=== PATIENT | male | born 1970 | race Hispanic/Latino ===

== ENCOUNTER 2017-11-20 23:55 | Emergency (ER) | payer SELFPAY ==
[2017-11-21] MEDS ORDERED: LABETALOL 20 MG/4ML SYRINGE IV ONE (00:41)
[2017-11-21 00:55] LABS: Absolute Lymphocytes (CBC) 2.4 K/uL (0.7-4.9); Absolute Monocytes 0.8 K/uL (0.1-1.3); Absolute Neutrophil 7.2 K/uL (1.8-8.0); Basophils % 0.8 % (0-1.3); Eosinophils % 0.3 % (0-4.4); Hematocrit 47.8 % (39.6-49.0); Lymphocytes % 22.8 % (15.3-44.8); MCH 30.8 pg (27.0-35.0); MCV 89.3 fL (80-100); Monocytes % 7.7 % (3.3-12.3); RBC Red Blood Cell Count 5.36 M/uL (4.33-5.43)
[2017-11-21 01:00] LABS: Protime INR 0.97
[2017-11-21 01:24] LABS: Bicarbonate 23 mEq/L (21-31); Glucose Level 118 mg/dL (65-120); Potassium 3.3 mEq/L (3.6-5.0); Sodium Level 135 mEq/L (135-145)
[2017-11-21 01:25] LABS: BUN Blood Urea Nitrogen 13 mg/dL (6-20); Glomerular Filtration Rate > 90 mL/min (=/>90)
[2017-11-21] MEDS ORDERED: ONDANSETRON 4 MG/2 ML VIAL ONE (01:31)
--- NOTE | 2017-11-21 02:27 | ER ---
Nurse's Notes [facility] Name: Narciso Her Age: 47 yrs Sex: Male : 1970 Arrival Date: 11/21/2017 Time: 00:01 Bed 7 Private MD: Diagnosis: Third [oculomotor] nerve palsy, right eye Presentation: 11/21 00:08 Presenting complaint: Patient states: Headache x2 days causing pain behind right eye lp1 and blurred vision to right eye; Pain to base of skull, dizziness, nausea. Transition of care: patient was not received from another setting of care. Onset of symptoms was November 19, 2017. Care prior to arrival: None. 00:08 Method Of Arrival: Ambulatory lp1 00:08 Acuity: NATALI 3 lp1 Triage Assessment: 00:11 Headache History: The patient has had previous headaches and this one is similar to lp1 previous episodes, and this one is more severe than previous episodes. General: Appears in no apparent distress. Behavior is appropriate for age. Neuro: Level of Consciousness is awake, alert, obeys commands, Gait is steady, Speech is normal, Facial symmetry appears normal, Pupils are PERRLA. 00:19 Pain: Pain began 2-3 days ago. Also complains of no other associated symptoms. ao Historical: - Allergies: 00:11 No Known Allergies; lp1 - Home Meds: 00:11 Prevacid Oral [Active]; lp1 - PMHx: 00:11 Migraines; gastritis; lp1 - PSHx: 00:11 Knee surgery; lp1 - Immunization history:: Adult Immunizations up to date. - Social history:: Smoking status: Patient/guardian denies using tobacco. Screenin:11 Abuse screen: Denies threats or abuse. Denies injuries from another. Nutritional lp1 screening: No deficits noted. Tuberculosis screening: No symptoms or risk factors identified. Fall Risk None identified. 01:04 The patient has not been NPO before screening. The patient is alert, able to follow ao commands. The patient does not exhibit slurred or garbled speech The patient is not exhibiting difficulty speaking. The patient does not exhibit difficulty understanding words. The patient is able to swallow own secretions with no drooling or need for suction. Patient tolerated one teaspoon of water. No drooling, immediate coughing, gurgling, or clearing of the throat was noted. The patient tolerated 90mL of water. No drooling, immediate coughing, gurgling, or clearing of the throat was noted. The patient passed the bedside swallow screening. Oral medications may be given as ordered. Contact Physician for further diet orders. Provider notified of bedside swallow screening results: Jarad Lezama MD. Assessment: 00:11 General: Appears in no apparent distress. comfortable, Behavior is calm, cooperative, ao appropriate for age. Pain: Complains of pain in right eye Pain currently is 8 out of 10 on a pain scale. Neuro: Level of Consciousness is awake, alert, obeys commands, Oriented to person, place, time, situation, Appropriate for age Moves all extremities. Speech is normal, Appears normal, C/O Right side eye weakness. Neuro:. Cardiovascular: Heart tones S1 S2 Capillary refill < 3 seconds Patient's skin is warm and dry. Respiratory: Airway is patent Respiratory effort is even, unlabored, Respiratory pattern is regular, symmetrical, Breath sounds are clear bilaterally. GI: Abdomen is obese, Bowel sounds present X 4 quads. : No signs and/or symptoms were reported regarding the genitourinary system. EENT: Eyes Right eye close. Patient C/O double vision . Reports blurred vision in iris of right eye pain in right eye. Derm: Skin is intact, Skin is pink, warm \T\ dry. Skin temperature is warm. Musculoskeletal: No signs and/or symptoms reported regarding the musculoskeletal system. Range of motion: intact in all extremities. 01:08 Reassessment: Patient appears in no apparent distress at this time. Patient and/or ao family updated on plan of care and expected duration. Pain level reassessed. Patient is alert, oriented x 3, equal unlabored respirations, skin warm/dry/pink. waiting on CT report. 02:05 Reassessment: Patient appears in no apparent distress at this time. Patient is alert, ao oriented x 3, equal unlabored respirations, skin warm/dry/pink. Patient to be transferred. Patient has no questions at this time. 03:03 Reassessment: Patient appears in no apparent distress at this time. Patient and/or ao family updated on plan of care and expected duration. Pain level reassessed. Patient is alert, oriented x 3, equal unlabored respirations, skin warm/dry/pink. Phone report called MARICRUZ Pacheco. 03:11 Reassessment: Patient left ER. Patient Stable at this time. VS stable. Patient had no ao questions. Hand off care to EMS. Vital Signs: 00:10 BP 163 / 109; Pulse 77; Resp 18; Temp 97.8(O); Pulse Ox 99% on R/A; Weight 133.81 kg; lp1 Height 5 ft. 8 in. (172.72 cm); Pain 7/10; 01:08 BP 119 / 76; Pulse 79; Resp 18; Pulse Ox 98% on R/A; Pain 0/10; ao 02:05 BP 121 / 88; Pulse 78; Resp 14; Pulse Ox 97% on R/A; Pain 0/10; ao 03:11 BP 125 / 77; Pulse 74; Resp 19; Pulse Ox 98% on R/A; Pain 0/10; ao 00:10 Body Mass Index 44.85 (133.81 kg, 172.72 cm) lp1 NIH Stroke Scale Scores: 00:17 NIHSS Score: 3 ao 01:29 NIHSS Score: 1 ED Course: 00:01 Patient arrived in ED. do 00:03 Jarad Lezama MD is Attending Physician. gs 00:05 Matt Alejandra RN is Primary Nurse. ao 00:10 Triage completed. lp1 00:10 Arm band placed on left wrist. lp1 00:19 Patient has correct armband on for positive identification. Pulse ox on. NIBP on. ao 00:35 X-ray completed. Portable x-ray completed in exam room. Patient tolerated procedure kw well. 00:45 Inserted saline lock: 20 gauge in right forearm, using aseptic technique. Blood bp collected. 01:27 Protime (+inr) Sent. ao 01:27 CBC with Diff Sent. ao 01:27 Basic Metabolic Panel Sent. ao 01:28 Stroke CXR 1 View Sent. ao 01:28 CT Stroke Brain w/o Contrast Sent. ao 02:34 Urine Microscopic Only Sent. ao 03:08 No provider procedures requiring assistance completed. Patient transferred, IV remains ao in place. Administered Medications: 00:53 Drug: Labetalol 10 mg Route: IVP; Infused Over: 2 mins; Site: right forearm; ao 01:28 Follow up: Response: No adverse reaction; Blood pressure is lowered ao 01:10 Drug: Zofran 4 mg Route: IVP; Site: right forearm; ao 02:34 Follow up: Response: No adverse reaction ao Point of Care Testing: Blood Glucose: 00:45 Blood Glucose: 102 mg/dL; bp Ranges: Outcome: 02:26 ER care complete, transfer ordered by MD. gan 03:08 Transferred to [facility], Transfer form completed. X-rays sent w/ patient. ao 03:08 Condition: stable 03:08 Instructed on the need for transfer. 03:17 Patient left the ED. ao NIH Stroke Scale - NIH Stroke Score Date: 11/21/2017 Time: 00:17 Total Score = 3 1a. Level of Consciousness (LOC) - 0(Alert) 1b. Level of Consciousness (LOC) (Year \T\ Age) - 0(Both) 1c. LOC Commands (Open \T\ Closes Eyes/Electrical Prospecting Observer) - 1(One) 2. Best Gaze (Lateral Gaze Paresis) - 1(Partial gaze palsy) 3. Visual Field Loss - 1(Partial hemianopia) 4. Facial Palsy - 0(Normal) 5a. Left Arm: Motor (10-second hold) - 0(No drift) 5b. Right Arm: Motor (10-second hold) - 0(No drift) 6a. Left Leg: Motor (5-second hold - always test supine) - 0(No drift) 6b. Right Leg: Motor (5-second hold - always test supine) - 0(No drift) 7. Limb Ataxia (finger/nose \T\ heel/strong - test with eyes open) - 0(Absent) 8. Sensory Loss (pinprick arms/legs/face) - 0(Normal) 9. Best Language: Aphasia (description/naming/reading) - 0(No aphasia) 10. Dysarthria (speech clarity - read or repeat words) - 0(Normal) 11. Extinction and Inattention (visual/tactile/auditory/spatial/personal) - 0(No abnormality) Initials: ao NIH Stroke Scale - NIH Stroke Score Date: 11/21/2017 Time: 01:29 Total Score = 1 1a. Level of Consciousness (LOC) - 0(Alert) 1b. Level of Consciousness (LOC) (Year \T\ Age) - 0(Both) 1c. LOC Commands (Open \T\ Closes Eyes/Electrical Prospecting Observer) - 0(Both) 2. Best Gaze (Lateral Gaze Paresis) - 1(Partial gaze palsy) 3. Visual Field Loss - 0(No visual loss) 4. Facial Palsy - 0(Normal) 5a. Left Arm: Motor (10-second hold) - 0(No drift) 5b. Right Arm: Motor (10-second hold) - 0(No drift) 6a. Left Leg: Motor (5-second hold - always test supine) - 0(No drift) 6b. Right Leg: Motor (5-second hold - always test supine) - 0(No drift) 7. Limb Ataxia (finger/nose \T\ heel/strong - test with eyes open) - 0(Absent) 8. Sensory Loss (pinprick arms/legs/face) - 0(Normal) 9. Best Language: Aphasia (description/naming/reading) - 0(No aphasia) 10. Dysarthria (speech clarity - read or repeat words) - 0(Normal) 11. Extinction and Inattention (visual/tactile/auditory/spatial/personal) - 0(No abnormality) Initials: Signatures: Rizwana Morgan Laura, RN RN lp1 Matt Alejandra RN RN ao Natalie Lara Gregory, MD MD gs Peltier, Brian RN RN bp
--- NOTE | 2017-11-21 02:27 | EDPHYS ---
Physician Documentation [facility] Name: Narciso Her Age: 47 yrs Sex: Male : 1970 Arrival Date: 11/21/2017 Time: 00:01 Bed 7 Private MD: ED Physician Jarad Lezama HPI: 11/21 01:29 This 47 yrs old Male presents to ER via Ambulatory with complaints of gs Headache, Nausea, Feels like R side of face is paralyzed. 01:29 The patient presents to the emergency department with a vision problem, blurred vision. gs Onset: The symptoms/episode began/occurred acutely, 12 hour(s) ago. Context: occurred at home. Associated signs and symptoms: Pertinent positives: headache, gradual onset. Severity of symptoms: At their worst the symptoms were moderate in the emergency department the symptoms are unchanged. Patient's baseline: Neuro: alert and fully oriented, Motor: no deficits, Ambulation: walks without assistance, Speech: normal. The patient has not experienced similar symptoms in the past. Historical: - Allergies: 00:11 No Known Allergies; lp1 - Home Meds: 00:11 Prevacid Oral [Active]; lp1 - PMHx: 00:11 Migraines; gastritis; lp1 - PSHx: 00:11 Knee surgery; lp1 - Immunization history:: Adult Immunizations up to date. - Social history:: Smoking status: Patient/guardian denies using tobacco. ROS: 01:29 All other systems are negative. gs Exam: 01:29 Head/Face: Normocephalic, atraumatic. ENT: Nares patent. No nasal discharge, no gs septal abnormalities noted. Tympanic membranes are normal and external auditory canals are clear. Oropharynx with no redness, swelling, or masses, exudates, or evidence of obstruction, uvula midline. Mucous membranes moist. Neck: Trachea midline, no thyromegaly or masses palpated, and no cervical lymphadenopathy. Supple, full range of motion without nuchal rigidity, or vertebral point tenderness. No Meningismus. Chest/axilla: Normal chest wall appearance and motion. Nontender with no deformity. No lesions are appreciated. Cardiovascular: Regular rate and rhythm with a normal S1 and S2. No gallops, murmurs, or rubs. Normal PMI, no JVD. No pulse deficits. Respiratory: Lungs have equal breath sounds bilaterally, clear to auscultation and percussion. No rales, rhonchi or wheezes noted. No increased work of breathing, no retractions or nasal flaring. Abdomen/GI: Soft, non-tender, with normal bowel sounds. No distension or tympany. No guarding or rebound. No evidence of tenderness throughout. Back: No spinal tenderness. No costovertebral tenderness. Full range of motion. Skin: Warm, dry with normal turgor. Normal color with no rashes, no lesions, and no evidence of cellulitis. MS/ Extremity: Pulses equal, no cyanosis. Neurovascular intact. Full, normal range of motion. 01:29 Constitutional: The patient appears alert, awake. 01:29 Eyes: Periorbital structures: ptosis r upper lid, Pupils: no acute changes, Extraocular movements: gaze deviation towards the superior on right eye and medial on right eye, Corneas: are normal. 01:29 Neuro: Orientation: is normal, Mentation: is normal, Memory: is normal, Cranial nerves: normal except r 3rd, Cerebellar function: is grossly normal, Motor: moves all fours, strength is 5/5 in all extremities, Sensation: no obvious gross deficits. 01:41 ECG was reviewed by the Attending Physician. Vital Signs: 00:10 BP 163 / 109; Pulse 77; Resp 18; Temp 97.8(O); Pulse Ox 99% on R/A; Weight 133.81 kg; lp1 Height 5 ft. 8 in. (172.72 cm); Pain 7/10; 01:08 BP 119 / 76; Pulse 79; Resp 18; Pulse Ox 98% on R/A; Pain 0/10; ao 02:05 BP 121 / 88; Pulse 78; Resp 14; Pulse Ox 97% on R/A; Pain 0/10; ao 03:11 BP 125 / 77; Pulse 74; Resp 19; Pulse Ox 98% on R/A; Pain 0/10; ao 00:10 Body Mass Index 44.85 (133.81 kg, 172.72 cm) lp1 NIH Stroke Scale Scores: 00:17 NIHSS Score: 3 ao 01:29 NIHSS Score: 1 gs MDM: 00:07 Patient medically screened. 01:29 Data reviewed: vital signs, nurses notes. ED course: ddx- ich, brain stem cva, gs aneurysm, sah. 11/21 00:18 Order name: Basic Metabolic Panel 11/21 00:18 Order name: CBC with Diff 11/21 00:18 Order name: Protime (+inr) 11/21 00:18 Order name: Urine Microscopic Only 11/21 01:10 Order name: CBC with Automated Diff EDMS 11/21 01:11 Order name: Protime (+INR) EDMS 11/21 00:18 Order name: CT Stroke Brain w/o Contrast 11/21 00:18 Order name: Stroke CXR 1 View 11/21 01:25 Order name: Basic Metabolic Panel EDMS 11/21 02:48 Order name: Urine Dipstick--Ancillary (enter results) oh 11/21 03:01 Order name: Urine Microscopic Only EDKY 11/21 03:08 Order name: Urine Dipstick-Ancillary EDKY 11/21 00:18 Order name: EKG; Complete Time: 00:19 11/21 00:18 Order name: Accucheck; Complete Time: 00:53 11/21 00:18 Order name: Cardiac monitoring; Complete Time: 00:54 11/21 00:18 Order name: EKG - Nurse/Tech; Complete Time: 00:54 11/21 00:18 Order name: IV Saline Lock; Complete Time: 00:54 11/21 00:18 Order name: Labs collected and sent; Complete Time: 00:54 11/21 00:18 Order name: NPO; Complete Time: 00:25 11/21 00:18 Order name: O2 Per Protocol; Complete Time: 00:25 11/21 00:18 Order name: O2 Sat Monitoring; Complete Time: 00:26 11/21 00:18 Order name: Stroke Swallow Screen; Complete Time: 00:54 11/21 00:18 Order name: Urine Dipstick-Ancillary (obtain specimen); Complete Time: 02:34 gs EC:41 Rate is 77 beats/min. Rhythm is regular. [place] interval is normal. QRS interval is normal. gs QT interval is normal. T waves are Normal. No ST changes noted. Clinical impression: Normal ECG. Interpreted by me. Administered Medications: 00:53 Drug: Labetalol 10 mg Route: IVP; Infused Over: 2 mins; Site: right forearm; ao 01:28 Follow up: Response: No adverse reaction; Blood pressure is lowered ao 01:10 Drug: Zofran 4 mg Route: IVP; Site: right forearm; ao 02:34 Follow up: Response: No adverse reaction ao Point of Care Testing: Blood Glucose: 00:45 Blood Glucose: 102 mg/dL; bp Ranges: Critical Glucose Levels:Adult <50 mg/dl or >400 mg/dl <40 mg/dl or >180 mg/dl Disposition: 11/21/17 02:26 Transfer ordered to Other Acute Care Facility. Diagnosis is Third [oculomotor] nerve palsy, right eye. - Reason for transfer: Higher level of care. - Accepting physician is randy. - Condition is Stable. - Problem is new. - Symptoms are unchanged. NIH Stroke Scale - NIH Stroke Score Date: 11/21/2017 Time: 00:17 Total Score = 3 1a. Level of Consciousness (LOC) - 0(Alert) 1b. Level of Consciousness (LOC) (Year \T\ Age) - 0(Both) 1c. LOC Commands (Open \T\ Closes Eyes/Foundry Manager) - 1(One) 2. Best Gaze (Lateral Gaze Paresis) - 1(Partial gaze palsy) 3. Visual Field Loss - 1(Partial hemianopia) 4. Facial Palsy - 0(Normal) 5a. Left Arm: Motor (10-second hold) - 0(No drift) 5b. Right Arm: Motor (10-second hold) - 0(No drift) 6a. Left Leg: Motor (5-second hold - always test supine) - 0(No drift) 6b. Right Leg: Motor (5-second hold - always test supine) - 0(No drift) 7. Limb Ataxia (finger/nose \T\ heel/strong - test with eyes open) - 0(Absent) 8. Sensory Loss (pinprick arms/legs/face) - 0(Normal) 9. Best Language: Aphasia (description/naming/reading) - 0(No aphasia) 10. Dysarthria (speech clarity - read or repeat words) - 0(Normal) 11. Extinction and Inattention (visual/tactile/auditory/spatial/personal) - 0(No abnormality) Initials: ao NIH Stroke Scale - NIH Stroke Score Date: 11/21/2017 Time: Total Score = 1 1a. Level of Consciousness (LOC) - 0(Alert) 1b. Level of Consciousness (LOC) (Year \T\ Age) - 0(Both) 1c. LOC Commands (Open \T\ Closes Eyes/Foundry Manager) - 0(Both) 2. Best Gaze (Lateral Gaze Paresis) - 1(Partial gaze palsy) 3. Visual Field Loss - 0(No visual loss) 4. Facial Palsy - 0(Normal) 5a. Left Arm: Motor (10-second hold) - 0(No drift) 5b. Right Arm: Motor (10-second hold) - 0(No drift) 6a. Left Leg: Motor (5-second hold - always test supine) - 0(No drift) 6b. Right Leg: Motor (5-second hold - always test supine) - 0(No drift) 7. Limb Ataxia (finger/nose \T\ heel/strong - test with eyes open) - 0(Absent) 8. Sensory Loss (pinprick arms/legs/face) - 0(Normal) 9. Best Language: Aphasia (description/naming/reading) - 0(No aphasia) 10. Dysarthria (speech clarity - read or repeat words) - 0(Normal) 11. Extinction and Inattention (visual/tactile/auditory/spatial/personal) - 0(No abnormality) Initials: Signatures: Dispatcher [employer] Paty Martinez RN RN lp1 Matt Alejandra RN RN ao Jarad Lezama MD MD
[2017-11-21 03:01] LABS: Urine Bacteria <20 /HPF (NONE SEEN); Urine Culture Reflex Order NOT NEEDED; Urine RBC NONE SEEN /HPF (NONE SEEN)
[2017-11-21 03:07] LABS: Urine Blood NEGATIVE (NEG); Urine Glucose NEGATIVE (NEG); Urine Protein NEGATIVE (NEG); Urine Specific Gravity 1.015 (1.005-1.030)
--- NOTE | 2017-11-21 06:50 | RAD REPORT ---
EXAM DESCRIPTION: RAD - Chest Single View - 11/21/2017 12:36 am CLINICAL HISTORY: Shortness of breath, third nerve palsy COMPARISON: None. TECHNIQUE: AP portable chest image was obtained 0020 hours . FINDINGS: Lungs are clear. Heart and vasculature are normal. No measurable pleural effusion and no p neumothorax. No gross bony abnormality seen. No acute aortic findings suspected. IMPRESSION: No acute cardiopulmonary process.
--- NOTE | 2017-11-21 06:51 | RAD REPORT ---
EXAM DESCRIPTION: CT - Ct Stroke Brain Wo Cont - 11/21/2017 6:33 am CLINICAL HISTORY: Possible stroke, headache A preliminary written report was provided at the time of the study, and the report was reviewed prio r to final dictation. CLINICAL HISTORY: None. TECHNIQUE: Axial 5 millimeter thick images of the head were obtained without IV contrast. All CT scans are performed using dose optimization technique as appropriate and may include automated exposure control or mA/KV adjustment according to patient size. FINDINGS: No intracranial hemorrhage, mass, or cerebral edema. No acute infarction identifiable. No extra-axial fluid collections. Cao matter-white matter differentiation is preserved. Visualized portions of the mastoid air cells, paranasal sinuses, and orbits are unremarkable. IMPRESSION: No CT evidence of acute intracranial process.
--- NOTE | 2017-11-21 07:33 | EKG ---
Test Date: 2017-11-21 Test Time: 00:43:31 Online Content Editor: KEYLA MEASUREMENT RESULTS: Intervals: Rate: 77 [place]: 132 QRSD: 84 QT: 372 QTc: 420 [place]: P: 28 [place]: 132 QRS: 12 T: 57 INTERPRETIVE STATEMENTS: Normal sinus rhythm Normal ECG No previous ECG available for comparison Electronically Signed On 11-21-17 07:31:57 CDT by Sukhwinder Bradford
== END 2017-11-21 03:17 ==
LOC: ER 23:55
DX: H49.01 Third [oculomotor] nerve palsy, right eye (principal); K29.70 Gastritis, unspecified, without bleeding
CPT/HCPCS: 36415; 70450; 71045; 80048; 81003; 81015; 82962; 85025; 85610; 93005; 96374; 96375; 99285; J2405

== ENCOUNTER 2021-03-29 18:04 | Inpatient (IN) | payer SELFPAY ==
--- NOTE | 2021-03-29 22:06 | RAD REPORT ---
EXAM DESCRIPTION: CT - Head Brain Wo Cont - 03/29/2021 9:36 pm CLINICAL HISTORY: PAIN, headache COMPARISON: Ct Stroke Brain Wo Cont dated 11/21/2017 TECHNIQUE: Axial 5 mm thick images of the head were obtained without IV contrast. All CT scans are performed using dose optimization technique as appropriate and may include automated exposure control or mA/KV adjustment according to patient size. FINDINGS: No intracranial hemorrhage, mass, edema or shift of mid-line structures. No acute infarcti on changes seen. No abnormal extra-axial fluid collections. Ventricles are normal. Mastoid air cells and visualized portions of the paranasal sinuses are clear. No acute bony findings. No significant change from comparison. IMPRESSION: Negative non-contrast CT head examination.
[2021-03-29] MEDS ORDERED: NA CHLORIDE 0.9% 500 ML ONE (22:34)
[2021-03-29] MEDS ORDERED: DIPHENHYDRAMINE 50 MG/ML VIAL ONE (22:34)
[2021-03-29] MEDS ORDERED: METOCLOPRAMIDE 10 MG/2mL INJ ONE (22:34)
[2021-03-29 22:37] LABS: Protime INR 1.09
[2021-03-29 22:38] LABS: Absolute Lymphocytes (CBC) 2.9 K/uL (0.7-4.9); Basophils % 1.2 % (0-1.3); Hematocrit 47.3 % (39.6-49.0); Lymphocytes % 28.5 % (15.3-44.8); MPV 8.1 fL (7.6-11.3); RBC Red Blood Cell Count 5.24 M/uL (4.33-5.43)
[2021-03-29 22:53] LABS: ALT/SGPT 54 U/L (12-78); AST/SGOT 31 U/L (15-37); Albumin 3.8 g/dL (3.4-5.0); Alkaline Phosphatase 75 U/L (45-117); BUN Blood Urea Nitrogen 13 mg/dL (7-18); Bicarbonate 24 mmol/L (21-32); Bilirubin Direct 0.2 mg/dL (0-0.2); Bilirubin Total 0.6 mg/dL (0.2-1.0); Glucose Level 83 mg/dL (74-106); Magnesium 2.3 mg/dL (1.8-2.4); NT PRO-BNP 75 pg/mL (<125); Potassium 3.5 mmol/L (3.5-5.1); Protein, Total 7.6 g/dL (6.4-8.2); Sodium Level 142 mmol/L (136-145); Troponin (Emerg Dept Use Only) < 0.02 ng/mL (0.0-0.045)
[2021-03-30] MEDS ORDERED: ACETAMINOPHEN 325 MG TABLET ONE (00:06)
[2021-03-30] MEDS ORDERED: dexAMETHasone 10 MG/ML VIAL ONE (00:06)
[2021-03-30] MEDS ORDERED: ASPIRIN 81 MG CHEWABLE TABLET ONE ×2 (00:06→07:46)
--- NOTE | 2021-03-30 01:51 | P.HP ---
Certification for Inpatient Patient admitted to: Observation With expected LOS: <2 Midnights Patient will require the following post-hospital care: None Practitioner: I am a practitioner with admitting privileges, knowledge of patient current condition, hospital course, and medical plan of care. Services: Services provided to patient in accordance with Admission requirements found in Title 42 Section 412.3 of the Code of Federal Regulations Patient History Date of Service: 03/30/21 Reason for admission: headache, peripheral vision changes History of Present Illness: Mr. Her is a 50 yo M with history of CVA 3 years ago and HTN who presents with headache and peripheral vision changes. He says the headache began a week ago and he initially thought it was releated to allergies. Then yesterday morning, he said he started to have peripheral vision loss in his right eye and numbness on the right side of his face. He said when he had a stroke 3 years ago that he had similar symptoms. The headache is triggered by bright lights and is not relieved with excedrin. He reports nausea, dizziness, and numbness in right arm. Denies vomiting, weakness, gait difficulty. CT Head without acute findings. Allergies No Known Allergies Allergy (Unverified 11/21/17 03:21) - Past Medical/Surgical History -: CVA 2018 -: HTN -: R knee surgery - Family History Family History: Reviewed- Non-Contributory - Social History Smoking Status: Never smoker Alcohol use: No CD- Drugs: No Caffeine use: No Place of Residence: Home Review of Systems 10-point ROS is otherwise unremarkable Eyes: Vision Change Gastrointestinal: Nausea Neurological: Numbness Physical Examination - Physical Exam General: Alert, In no apparent distress HEENT: Atraumatic, PERRLA, Mucous membr. moist/pink, Other (Rsided peripheral vision loss), EOMI, Sclerae nonicteric Neck: Supple, 2+ carotid pulse no bruit, No LAD, Without JVD or thyroid abnormality Respiratory: Clear to auscultation bilaterally, Normal air movement Cardiovascular: Regular rate/rhythm, Normal S1 S2 Gastrointestinal: Normal bowel sounds, No tenderness Musculoskeletal: No tenderness Integumentary: No rashes Neurological: Normal gait, Normal speech, Normal strength at 5/5 x4 extr, Normal tone, Sensation intact, Cranial nerves 3-12 intact, Normal affect Lymphatics: No axilla or inguinal lymphadenopathy - Studies Laboratory Data (last 24 hrs) 07/26/21 22:25: PT 12.6 H, INR 1.09 03/29/21 22:25: WBC 10.10, Hgb 16.2, Hct 47.3, Plt Count 177 03/29/21 22:25: Sodium 142, Potassium 3.5, BUN 13, Creatinine 1.02, Glucose 83, Magnesium 2.3, Total Bilirubin 0.6, AST 31, ALT 54, Alkaline Phosphatase 75 Assessment and Plan - Problems (Diagnosis) (1) Headache Current Visit: Yes Status: Acute Qualifiers: Headache type: unspecified Headache chronicity pattern: acute headache Intractability: intractable Qualified Code(s): R51.9 - Headache, unspecified (2) Peripheral vision loss Current Visit: Yes Status: Acute Qualifiers: Laterality: right Qualified Code(s): H53.451 - Other localized visual field defect, right eye (3) CVA (cerebral vascular accident) Current Visit: Yes Status: Chronic Qualifiers: CVA mechanism: unspecified Qualified Code(s): I63.9 - Cerebral infarction, unspecified (4) HTN (hypertension) Current Visit: Yes Status: Chronic Qualifiers: Hypertension type: primary hypertension Qualified Code(s): I10 - Essential (primary) hypertension - Plan neurology consulted, CVA vs complex migraine MRI stroke protocol in the AM daily ASA, folic acid, statin lipid panel pending pain management as needed will consider speech consult, PT, carotid US and ECHO based on MRI results reconcile and continue home medications DVT ppx Discharge Plan: Home Plan to discharge in: 24 Hours - Advance Directives Does patient have a Living Will: No Does patient have a Durable POA for Healthcare: No - Code Status/Comfort Care Code Status Assessed: Yes (full code) Critical Care: No Time Spent Managing Pts Care (In Minutes): 70
[2021-03-30] MEDS ORDERED: ACETAMINOPHEN 500 MG TAB PO PRN (03:22)
[2021-03-30] MEDS ORDERED: IBUPROFEN 400 MG TAB PO SCH (03:22)
[2021-03-30 03:41] VITALS: BMI 42.7
[2021-03-30] MEDS ORDERED: IBUPROFEN 400 MG TAB ONE ×2 (03:53→07:47)
[2021-03-30 04:48] LABS: Absolute Lymphocytes (CBC) 2.3 K/uL (0.7-4.9); Basophils % 0.8 % (0-1.3); Hematocrit 45.9 % (39.6-49.0); Lymphocytes % 26.9 % (15.3-44.8); MPV 8.1 fL (7.6-11.3); RBC Red Blood Cell Count 5.03 M/uL (4.33-5.43)
[2021-03-30 04:57] LABS: Albumin 3.6 g/dL (3.4-5.0); Bilirubin Total 0.7 mg/dL (0.2-1.0); Potassium 3.7 mmol/L (3.5-5.1); Protein, Total 7.3 g/dL (6.4-8.2)
[2021-03-30] MEDS ORDERED: LORazepam 2 MG/ML VIAL ONE (07:21)
[2021-03-30] MEDS ORDERED: FOLIC ACID 1 MG TABLET ONE (07:47)
--- NOTE | 2021-03-30 07:59 | EKG ---
Test Date: 2021-03-29 Test Time: 22:09:49 Equity Director: ANGEL MEASUREMENT RESULTS: Intervals: Rate: 52 MO: 138 QRSD: 78 QT: 430 QTc: 399 [place]: P: 30 MO: 138 QRS: 5 T: 34 INTERPRETIVE STATEMENTS: Sinus bradycardia Otherwise normal ECG Compared to ECG 11/21/2017 00:43:31 Sinus rhythm no longer present Electronically Signed On 03-30-21 07:57:36 CDT by Zackery Nava
--- NOTE | 2021-03-30 08:34 | RAD REPORT ---
EXAM DESCRIPTION: MRI - Brain W/Wo Cont - 03/30/2021 8:22 am CLINICAL HISTORY: HEADACHE, VISION LOSS COMPARISON: MRA Head Wo Cont dated 03/30/2021; Head Brain Wo Cont dated 03/29/2021 TECHNIQUE: Sagittal and axial T1-weighted images were obtained. Axial PD/heavily T2-weighted and T2- FLAIR images were obtained along with axial DWI/ADC mapping sequences. Coronal heavily T2 weighted s equence obtained. Axial and coronal post-contrast T1-weighted images were also obtained. A 20 ml Mul tihance contrast following utilized. FINDINGS: No intracranial hemorrhage, mass or acute infarction. There is no edema or shift of midli ne structures. No extra-axial fluid collections. Cao-matter/white matter junction is preserved. Sig nal voids are seen as a normal finding in the major intracranial vessels. No atrophy or chronic ische pierre change. Ventricles are normal. No globe, optic nerve or extra ocular muscle abnormality. Orbital fat has a normal appearance. No valeria la or supra sella abnormality. Cavernous sinus regions also without suspicious finding. Post-contrast images show normal enhancement. No dural thickening. Mastoid air cells and paranasal sinuses are clear. IMPRESSION: Contrast-enhanced brain MRI imaging shows no acute infarction. No mass or other abnormal ity to explain dizziness, headache and vision loss
--- NOTE | 2021-03-30 08:36 | RAD REPORT ---
EXAM DESCRIPTION: MRI - MRA Head Wo Cont - 03/30/2021 8:22 am CLINICAL HISTORY: Headache, vision loss COMPARISON: None. TECHNIQUE: Axial and coronal 3D [id number] image acquisition was performed. 3D rotational images were generated with source and reconstruction images reviewed. Horizontal and vertical axis rotation al views generated using MIP protocol. FINDINGS: No aneurysm or vascular malformation identified. No named branch occlusion, vasculitis or other vascular finding. Major venous sinuses are patent. No measurable atherosclerotic change. IMPRESSION: MRA head examination shows no significant or suspicious finding.
--- NOTE | 2021-03-30 08:38 | RAD REPORT ---
EXAM DESCRIPTION: MRI - MRA Neck W/Wo Cont - 03/30/2021 8:23 am CLINICAL HISTORY: Headache, vision loss, dizziness COMPARISON: MRI brain same date, CT head March 29 TECHNIQUE: MR angiography of the cervical vasculature performed. Coronal imaging plane acquisition u tilized. A 20 MultiHance contrast volume was utilized. Coronal reformatted images were generated and reviewed. Vertical axis 3D rotational projections obtained using maximum intensity projection protoco l. FINDINGS: Aortic arch is 3 vessel configuration with no origins stenosis. Vertebral artery origins a re unremarkable as well. The left vertebral artery is dominant. The carotid and vertebral vasculature show no dissection, stenosis or suspicious vascular finding. Po rtions of the distal vertebral arteries in the C2 region are not optimally visualized. The collective MRA head and MRA neck images indicate no distal vertebral abnormality. IMPRESSION: MRA neck examination shows no significant or suspicious finding.
[2021-03-30] MEDS: ASPIRIN EC 81 MG TAB PO SCH (08:58)
[2021-03-30] MEDS: FOLIC ACID 1 MG TABLET PO SCH (08:59)
[2021-03-30] MEDS ORDERED: HYDROMORPHONE HCL 0.5 MG/0.5 ML INJ IV ONE (11:09)
[2021-03-30] MEDS ORDERED: ONDANSETRON 4 MG/2 ML VIAL IV ONE (11:11)
[2021-03-30] MEDS ORDERED: ONDANSETRON 4 MG/2 ML VIAL ONE (11:25)
[2021-03-30] MEDS ORDERED: HYDROMORPHONE HCL 0.5 MG/0.5 ML INJ ONE (11:25)
[2021-03-30] MEDS: IBUPROFEN 400 MG TAB PO SCH ×2 (12:00→20:18)
[2021-03-30] MEDS: HYDROMORPHONE HCL 0.5 MG/0.5 ML INJ IV PRN ×2 (17:19→21:43)
--- NOTE | 2021-03-30 17:46 | ER ---
Nurse's Notes [facility] Name: Narciso Her Age: 50 yrs Sex: Male : 1970 Arrival Date: 03/29/2021 Time: 18:05 Bed 14 Private MD: Diagnosis: Cerebral infarction, unspecified;Headache Presentation: 03/29 19:51 Chief complaint: Patient states: Migraine x 1 wk, nausea, vomiting. Right eye swollen kg at 17:45. Coronavirus screen: Client denies travel out of the [place] in the last 14 days. At this time, unable to obtain information related to travel outside the [place] At this time, the client does not indicate any symptoms associated with coronavirus-19. Ebola Screen: Patient negative for fever greater than or equal to 101.5 degrees Fahrenheit, and additional compatible Ebola Virus Disease symptoms Patient denies exposure to infectious person. Patient denies travel to an Ebola-affected area in the 21 days before illness onset. Initial Sepsis Screen: Does the patient meet any 2 criteria? No. Patient's initial sepsis screen is negative. Does the patient have a suspected source of infection? No. Patient's initial sepsis screen is negative. Risk Assessment: Do you want to hurt yourself or someone else? Patient reports no desire to harm self or others. Onset of symptoms was March 22, 2021. 19:51 Method Of Arrival: Ambulatory kg 19:51 Acuity: NATALI 3 kg Triage Assessment: 19:53 Headache History: The patient has had previous headaches and this one is more severe kg than previous episodes. General: Appears uncomfortable, Behavior is calm, cooperative, appropriate for age, quiet. Pain: Complains of pain in Behind right eye, center of head Pain currently is 9 out of 10 on a pain scale. at worst was 9 out of 10 on a pain scale. level that patient reports is acceptable is 5 out of 10 on a pain scale. Quality of pain is described as burning, "hot" Pain began One week ago Also complains of nausea, vomiting. EENT: Eyes Swollen right eye. Reports blurred vision Right eye swollen shut. Neuro: Reports headache frontal area, numbness in right arm since yesterday. Historical: - Allergies: 19:53 No Known Allergies; kg - Home Meds: 19:53 Metoprolol Tartrate Oral [Active]; kg - PMHx: 19:53 gastritis; Migraines; Hypertensive disorder; TIA; kg - PSHx: 19:53 Right knee replacement; kg - Immunization history:: Adult Immunizations not up to date, Client reports receiving the 2nd dose of the Covid vaccine. - Social history:: Smoking status: Patient denies any tobacco usage or history of. Smoking status: . Screenin:59 Abuse screen: Denies threats or abuse. Denies injuries from another. Nutritional kg screening: No deficits noted. Tuberculosis screening: No symptoms or risk factors identified. Fall Risk None identified. No fall in past 12 months (0 pts). No secondary diagnosis (0 pts). IV access (20 points). Ambulatory Aid- None/Bed Rest/Nurse Assist (0 pts). Gait- Normal/Bed Rest/Wheelchair (0 pts) Mental Status- Oriented to own ability (0 pts). Total Reinoso Fall Scale indicates No Risk (0-24 pts). Assessment: 03/30 02:22 Reassessment: Patient and/or family updated on plan of care and expected duration. Pain ak2 level reassessed. General: Appears in no apparent distress. Pain: Denies pain. Neuro: No deficits noted. Cardiovascular: No deficits noted. Respiratory: No deficits noted. Vital Signs: 03/29 19:51 BP 132 / 100; Pulse 72; Resp 20; Temp 97.5(TE); Pulse Ox 97% on R/A; Weight 131.09 kg kg (R); Height 5 ft. 9 in. (175.26 cm); Pain 9/10; 03/30 02:22 BP 122 / 74; Pulse 71; Resp 18; Pulse Ox 98% on R/A; ak2 03/29 19:51 Body Mass Index 42.68 (131.09 kg, 175.26 cm) kg ED Course: 03/29 18:05 Patient arrived in ED. mr 19:53 Triage completed. kg 19:59 Patient has correct armband on for positive identification. kg 21:04 René Baez PA is PHCP. jmm 21:04 Seth Kendrick MD is Attending Physician. jmm 21:36 CT Head Brain wo Cont In Process Unspecified. EDMS 03/30 00:31 Ignacio Thapa is Hospitalizing Provider. jmm 02:21 No provider procedures requiring assistance completed. ak2 08:48 Marty Jorgensen, RN is Primary Nurse. ll1 Administered Medications: 03/29 22:14 Drug: diphenhydrAMINE 12.5 mg Route: IVP; Site: left antecubital; md2 03/30 15:06 Follow up: Response: No adverse reaction 1 03/29 22:15 Drug: Reglan (metoCLOPramide) 20 mg Route: IVP; Site: left antecubital; md2 03/30 15:06 Follow up: Response: No adverse reaction [facility] 03/29 22:15 Drug: NS 0.9% 500 ml Route: IV; Rate: bolus; Site: left antecubital; md2 03/30 15:06 Follow up: Response: No adverse reaction; IV Status: Completed infusion; IV Intake: ll1 500ml 03/29 23:46 Drug: Aspirin Chewable Tablet 324 mg Route: PO; md2 03/30 15:06 Follow up: Response: No adverse reaction [facility] 03/29 23:46 Drug: Decadron - Dexamethasone 10 mg Route: IVP; Site: left antecubital; md2 03/30 15:06 Follow up: Response: No adverse reaction 1 03/29 23:46 Drug: Acetaminophen 650 mg Route: PO; md2 03/30 15:06 Follow up: Response: No adverse reaction [facility] 07:00 Drug: Ativan (LORazepam) 0.5 mg Route: IVP; Site: right antecubital; md2 15:05 Follow up: Response: No adverse reaction [facility] Intake: 15:06 IV: 500ml; Total: 500ml. [facility] Outcome: 00:32 Decision to Hospitalize by Provider. [facility] 15:07 Patient left the ED. 1 Signatures: Dispatcher [employer] EDMS René Baez PA PA jmm Rivera, Mary mr Marty Jorgensen, RN RN [facility] Santa Cochran RN RN kg Kapol[place], Anthony [facility]
--- NOTE | 2021-03-30 17:46 | EDPHYS ---
Physician Documentation [facility] Name: Narciso Her Age: 50 yrs Sex: Male : 1970 Arrival Date: 03/29/2021 Time: 18:05 Bed 14 Private MD: KWAME Physician Seth Kendrick HPI: 03/29 20:01 This 50 yrs old Male presents to ER via Ambulatory with complaints of Headache.jmm 20:01 The patient complains of pain to the right frontal area. Onset: The symptoms/episode jmm began/occurred gradually, 1 week(s) ago. Associated signs and symptoms: Pertinent positives: visual field changes. Headache History: The patient has had previous headaches and this one is similar to previous episodes. 50-year-old male with history of TIA, hypertension, migraines and presents emerged from with right-sided headache which began approximately 1 week ago. Symptoms have not been relieved. Patient states that he did notice a visual change to his right eye around 11 AM today. Denies vomiting, fever. Patient is otherwise had a similar headache in the past except for change in vision.. Historical: - Allergies: 19:53 No Known Allergies; kg - Home Meds: 19:53 Metoprolol Tartrate Oral [Active]; kg - PMHx: 19:53 gastritis; Migraines; Hypertensive disorder; TIA; kg - PSHx: 19:53 Right knee replacement; kg - Immunization history:: Adult Immunizations not up to date, Client reports receiving the 2nd dose of the Covid vaccine. - Social history:: Smoking status: Patient denies any tobacco usage or history of. Smoking status: . ROS: 20:01 Constitutional: Negative for fever, chills, and weight loss, Cardiovascular: Negative jmm for chest pain, palpitations, and edema, Respiratory: Negative for shortness of breath, cough, wheezing, and pleuritic chest pain. 20:01 Eyes: Positive for vision loss. 20:01 Neuro: Positive for headache. 20:01 All other systems are negative. Exam: 20:01 Constitutional: This is a well developed, well nourished patient who is awake, alert, jmm and in no acute distress. Head/Face: atraumatic. 20:01 ENT: Moist Mucus Membranes Neck: Trachea midline, Supple Chest/axilla: Normal chest wall appearance and motion. Cardiovascular: Regular rate and rhythm. No edema appreciated Respiratory: Normal respirations, no respiratory distress appreciated Abdomen/GI: Non distended, soft Back: Normal ROM Skin: General appearance color normal MS/ Extremity: Moves all extremities, no obvious deformities appreciated, no edema noted to the lower extremities Neuro: Awake and alert, normal gait Psych: Behavior is normal, Mood is normal, Patient is cooperative and pleasant 20:01 Eyes: Visual young: right lateral hemianopsia . Vital Signs: 19:51 BP 132 / 100; Pulse 72; Resp 20; Temp 97.5(TE); Pulse Ox 97% on R/A; Weight 131.09 kg kg (R); Height 5 ft. 9 in. (175.26 cm); Pain 05/14; 03/30 02:22 BP 122 / 74; Pulse 71; Resp 18; Pulse Ox 98% on R/A; ak2 03/29 19:51 Body Mass Index 42.68 (131.09 kg, 175.26 cm) kg MDM: 03/29 21:29 Patient medically screened. [facility] 03/30 00:30 Data reviewed: vital signs, nurses notes. Counseling: I had a detailed discussion with venkata the patient and/or guardian regarding: the historical points, exam findings, and any diagnostic results supporting the discharge/admit diagnosis, radiology results, the need for further work-up and treatment in the hospital. ED course: Patient's migraine headache is partially relieved in the ED. Due to her ongoing visual field defect patient will need further evaluation by neurology. Patient is greater than 4-1/2 hours from onset of field loss. Patient is not a TPA candidate. I discussed the patient with Kike Bates whom accepted the patient. 03/29 22:01 Order name: COVID-19 : Document "Date of Symptom Onset" if Symptomatic. em 03/29 22:03 Order name: Basic Metabolic Panel; Complete Time: 23:25 [facility] 03/29 22:03 Order name: CBC with Diff; Complete Time: 23:25 [facility] 03/29 22:03 Order name: LFT's; Complete Time: 23:25 [facility] 03/29 22:03 Order name: Magnesium; Complete Time: 23:25 [facility] 03/29 20:01 Order name: CT Head Brain wo Cont; Complete Time: 22:06 kg 03/29 22:03 Order name: NT PRO-BNP; Complete Time: 23:25 [facility] 03/29 22:03 Order name: PT-INR; Complete Time: 23:25 [facility] 03/29 22:03 Order name: Troponin (emerg Dept Use Only); Complete Time: 23:25 [facility] 03/29 23:58 Order name: SARS-COV-2 RT PCR; Complete Time: 00:01 [facility] 03/30 04:51 Order name: CBC with Automated Diff; Complete Time: 13:05 [facility] 03/30 04:58 Order name: Comprehensive Metabolic Panel; Complete Time: 13:05 [facility] 03/30 04:58 Order name: Lipid Profile; Complete Time: 13:05 [facility] 03/29 22:03 Order name: EKG; Complete Time: 22:04 [facility] 03/29 22:03 Order name: Cardiac monitoring; Complete Time: 22:17 [facility] 03/29 22:03 Order name: EKG - Nurse/Tech; Complete Time: 22:17 [facility] 03/29 22:03 Order name: IV Saline Lock [facility] 03/29 22:03 Order name: Labs collected and sent [facility] 03/30 01:09 Order name: CONS Physician Consult [facility] 03/30 08:35 Order name: MRI; Complete Time: 13: [facility] 03/30 08:36 Order name: MRI; Complete Time: 13: [facility] 03/30 08:39 Order name: MRI; Complete Time: 13:05 [facility] 03/29 22:03 Order name: O2 Per Protocol [facility] 03/29 22:03 Order name: O2 Sat Monitoring [facility] Administered Medications: 03/29 22:14 Drug: diphenhydrAMINE 12.5 mg Route: IVP; Site: left antecubital; [facility] 03/30 15:06 Follow up: Response: No adverse reaction [facility] 03/29 22:15 Drug: Reglan (metoCLOPramide) 20 mg Route: IVP; Site: left antecubital; [facility] 03/30 15:06 Follow up: Response: No adverse reaction [facility] 03/29 22:15 Drug: NS 0.9% 500 ml Route: IV; Rate: bolus; Site: left antecubital; [facility] 03/30 15:06 Follow up: Response: No adverse reaction; IV Status: Completed infusion; IV Intake: ll1 500ml 03/29 23:46 Drug: Aspirin Chewable Tablet 324 mg Route: PO; ak2 03/30 15:06 Follow up: Response: No adverse reaction ll1 03/29 23:46 Drug: Decadron - Dexamethasone 10 mg Route: IVP; Site: left antecubital; ak2 03/30 15:06 Follow up: Response: No adverse reaction ll1 03/29 23:46 Drug: Acetaminophen 650 mg Route: PO; ak2 03/30 15:06 Follow up: Response: No adverse reaction ll1 07:00 Drug: Ativan (LORazepam) 0.5 mg Route: IVP; Site: right antecubital; ak2 15:05 Follow up: Response: No adverse reaction ll1 Disposition Summary: 03/30/21 00:32 Hospitalization Ordered Hospitalization Status: Observation [facility] Provider: Ignacio Thapa Condition: Stable jmm Problem: new jmm Symptoms: have improved jmm Bed/Room Type: Standard [facility] Location: Telemetry/MedSurg (observation)(03/30/21 14:24) ja1 Room Assignment: 216(03/30/21 14:24) ja1 Diagnosis - Cerebral infarction, unspecified jmm - Headache jm Forms: - Medication Reconciliation Form jm - SBAR form [facility] Addendum: 04/01/2021 09:22 Co-signature as Attending Physician, Seth Kendrick MD I agree with the assessment and c souza plan of care. Signatures: Dispatcher [employer] EDVT Seth Kendrick MD MD cha Mickail, Joel, PA PA [facility] Omid Nieves MD MD rn Garcia, Cindy, RN RN cg Aguilar, Jose, RN RN ja1 Santa Cochran RN RN kg Kapol[place], Anthony ak2 Marty Jorgensen RN 1 Corrections: (The following items were deleted from the chart) 03/29 22:50 22:02 CORONAVIRUS ordered. [facility] 03/30 01:12 00:32 Telemetry/MedSurg (observation) jm cg 01:12 00:32 jm cg 14:24 01:12 [facility] ER HOLD cg ja1 14:24 01:12 ERHOLD- cg ja1
--- NOTE | 2021-03-30 17:47 | P.PN ---
Date of Service: 03/30/21 Patient seen and examined. He is complaining of headache. He also has photophobia. He denies any limb weakness or numbness. He is not sure if he still has peripheral vision loss. MRI of brain: No acute CVA MRA of head and neck: Unremarkable. I suspect Migraine headaches. Blood pressure within normal range. Aspirin, lipitor. Control blood pressure. IV hydromorphone p.r.n. for migraine. Neurology consult.
[2021-03-30] MEDS ORDERED: ATORVASTATIN 40 MG TAB PO SCH (21:00)
[2021-03-30] MEDS: METOCLOPRAMIDE 10 MG/2mL INJ IV PRN (21:49)
[2021-03-31] MEDS: HYDROMORPHONE HCL 0.5 MG/0.5 ML INJ IV PRN ×3 (03:29→17:42)
[2021-03-31] MEDS: IBUPROFEN 400 MG TAB PO SCH ×2 (03:29→12:27)
[2021-03-31 04:02] LABS: Absolute Lymphocytes (CBC) 1.9 K/uL (0.7-4.9); Basophils % 0.7 % (0-1.3); Hematocrit 45.8 % (39.6-49.0); Lymphocytes % 26.3 % (15.3-44.8); MPV 7.9 fL (7.6-11.3); RBC Red Blood Cell Count 5.06 M/uL (4.33-5.43)
[2021-03-31 04:20] LABS: Albumin 3.5 g/dL (3.4-5.0); Bilirubin Total 0.8 mg/dL (0.2-1.0); Potassium 3.7 mmol/L (3.5-5.1)
[2021-03-31] MEDS: ASPIRIN EC 81 MG TAB PO SCH (08:44)
[2021-03-31] MEDS: FOLIC ACID 1 MG TABLET PO SCH (08:45)
[2021-03-31] MEDS: METOCLOPRAMIDE 10 MG/2mL INJ IV PRN (08:46)
[2021-03-31] MEDS ORDERED: POTASSIUM CL SA 10 MEQ TAB PO ONE ×2 (09:00→09:06)
[2021-03-31 10:11] VITALS: O2SAT 95
[2021-03-31 17:14] VITALS: BP 128/65; TEMP 97.7
--- NOTE | 2021-03-31 18:15 | P.DS ---
Admission Date: 03/30/21 Discharge Date: 03/31/21 Disposition: ROUTINE DISCHARGE Discharge Condition: FAIR Reason for Admission: headache, peripheral vision changes - Problems (1) History of CVA (cerebrovascular accident) Current Visit: Yes Status: Acute (2) Headache Current Visit: Yes Status: Acute Qualifiers: Headache type: unspecified Headache chronicity pattern: acute headache Intractability: intractable Qualified Code(s): R51.9 - Headache, unspecified (3) HTN (hypertension) Current Visit: Yes Status: Chronic Qualifiers: Hypertension type: primary hypertension Qualified Code(s): I10 - Essential (primary) hypertension Brief History of Present Illness: 50 yo M with history of CVA 3 years ago, history of Ag's palsy and HTN who presents with headache and peripheral vision changes. He says the headache began a week ago and he initially thought it was releated to allergies. Headache associated with flu-like symptoms. This was followed by numbness on the right side of his face and blurry vision. He said when he had a stroke 3 years ago that he had similar symptoms. The headache is triggered by bright lights and is not relieved with excedrin and associated with nausea. He denied any limb weakness or gait abnormalities. CT Head in the ED showed no acute findings. Patient hospitalized for further management. Hospital Course: Patient placed on aspirin and folic acid. MRI of the brain, MRA of head and neck all came back unremarkable showing no acute changes. No signal identified in the orbital cavity to explain patient's visual changes. Patient reports prior history of Ag's palsy with similar symptoms. Case discussed with neurology-Dr. Everett. Ag's palsy is suspected. Complex migraine not ruled out. Acute CVA ruled out. Patient is discharged with Valtrex and prednisone for Ag's palsy. He has advice to follow with ice cream freezer helper for comprehensive eye examination. Patient also prescribed aspirin and folic acid given history of CVA in the past. Vital Signs/Physical Exam: Temp Pulse Resp BP Pulse Ox 97.7 F 70 17 128/65 97 03/31/21 16:00 03/31/21 16:00 03/31/21 16:00 03/31/21 16:00 03/31/21 16:00 General: Alert, In no apparent distress, Oriented x3 HEENT: Atraumatic, PERRLA, Mucous membr. moist/pink, EOMI, Sclerae nonicteric Neck: Supple, JVD not distended Respiratory: Clear to auscultation bilaterally, Normal air movement Cardiovascular: No edema, Regular rate/rhythm, Normal S1 S2 Gastrointestinal: Normal bowel sounds, Soft and benign, Non-distended, No tenderness Musculoskeletal: No swelling Integumentary: No rashes, No erythema Neurological: Normal speech, Normal strength at 5/5 x4 extr, Cranial nerves 3-12 intact Laboratory Data at Discharge: WBC 7.10 K/uL (4.3-10.9) D 03/31/21 03:37 Hgb 15.9 g/dL (13.6-17.9) 03/31/21 03:37 Hct 45.8 % (39.6-49.0) 03/31/21 03:37 Plt Count 160 K/uL (152-406) 03/31/21 03:37 PT 12.6 SECONDS (9.5-12.5) H 03/29/21 22:25 INR 1.09 03/29/21 22:25 Sodium 137 mmol/L (136-145) 03/31/21 03:37 Potassium 3.7 mmol/L (3.5-5.1) 03/31/21 03:37 BUN 17 mg/dL (7-18) 03/31/21 03:37 Creatinine 1.00 mg/dL (0.55-1.3) 03/31/21 03:37 Glucose 104 mg/dL (74-106) 03/31/21 03:37 Magnesium 2.3 mg/dL (1.8-2.4) 03/29/21 22:25 Total Bilirubin 0.8 mg/dL (0.2-1.0) 03/31/21 03:37 AST 33 U/L (15-37) 03/31/21 03:37 ALT 51 U/L (12-78) 03/31/21 03:37 Alkaline Phosphatase 69 U/L (45-117) 03/31/21 03:37 Triglycerides 130 mg/dL (<150) 03/30/21 04:10 Cholesterol 150 mg/dL (<200) 03/30/21 04:10 HDL Cholesterol 46 mg/dL (40-60) 03/30/21 04:10 Cholesterol/HDL Ratio 3.26 03/30/21 04:10 Home Medications: Aspirin [Aspirin EC] 81 mg PO DAILY #30 tablet. 03/31/21 Atorvastatin Calcium [Lipitor] 40 mg PO BEDTIME #30 tab 03/31/21 Folic Acid 1 mg PO DAILY #30 tablet 03/31/21 Valacyclovir HCl [Valacyclovir] 1,000 mg PO TID #21 tablet 03/31/21 predniSONE [Deltasone] 40 mg PO BID #28 tab 03/31/21 New Medications: Aspirin [Aspirin EC] 81 mg PO DAILY #30 tablet. Folic Acid 1 mg PO DAILY #30 tablet Atorvastatin Calcium [Lipitor] 40 mg PO BEDTIME #30 tab predniSONE [Deltasone] 40 mg PO BID #28 tab Valacyclovir HCl [Valacyclovir] 1,000 mg PO TID #21 tablet Diet: AHA Activity: Ad tenisha Followup: Bobo Lainez MD [OUTSIDE PHYSICIAN] - 1 Week NONE,NONE [Primary Care Provider] - Time spent managing pt's care (in minutes): 34
== END 2021-03-31 19:15 | disposition home or self-care (01) | DRG 74 ==
LOC: ER 18:04 → ERHOLD 03-30 01:17 → OBSVTOIN 03-30 07:41 → 2ND 03-30 15:02
PROVIDERS: ADMIT Internal Medicine; ATTEND Internal Medicine
DX: G51.0 Bell's palsy (principal); H54.7 Unspecified visual loss; G43.909 Migraine, unspecified, not intractable, without status migrainosus; I10 Essential (primary) hypertension; Z86.73 Personal history of transient ischemic attack (TIA), and cerebral infarction without residual deficits; Z20.822 Contact with and (suspected) exposure to COVID-19
CPT/HCPCS: 36415; 70450; 70544; 70549; 70553; 80048; 80053; 80061; 80076; 83735; 83880; 84484; 85025; 85610; 93005; 94760; 99283; A9577; G0378; J1170; J1200; J2405; J2765; J7040; U0003